=== PATIENT | female | born 1975 | race Caucasian/White ===

== ENCOUNTER 2017-05-05 08:53 | Emergency (ER) | payer OTHER ==
[2017-05-05 09:52] LABS: URINE BLOOD (Dip) POC 1+ (NEGATIVE); URINE GLUCOSE (Dip) POC Negative (NEGATIVE); URINE KETONES (Dip) POC Negative (NEGATIVE); URINE LEUKOCYTE EST (Dip) POC Negative (NEGATIVE); URINE NITRITE (Dip) POC Negative (NEGATIVE); URINE TOTAL PROTEIN POC Negative (NEGATIVE)
== END 2017-05-05 10:23 | disposition home or self-care (01) ==
LOC: FTE 08:53
DX: R30.0 Dysuria (principal); E66.01 Morbid (severe) obesity due to excess calories; I10 Essential (primary) hypertension
CPT/HCPCS: 81003; 99284